=== PATIENT | female | born 1935 ===

== ENCOUNTER 2019-03-23 15:49 | Emergency (ER) | payer MEDICARE, BC ==
[~2019-03-23] VITALS: Ht 170.2 cm; Wt 72.6 kg
--- OUTSIDE RECORDS SUMMARY | 2019-03-23 16:02 | XMS REPORT | Summary of Care ---
Author Author [facility] - Health Organization [facility] - Health Address Unknown Phone Unavailable Care Team Providers Care Sports Leadership Instructor Name Role Phone Al Huerta MD PCP Reason for Visit * Reason Comments Refill Request Encounter Details Care Team Description Date Type Department Al Huerta MD [address] [place] [address] Refill Request 03/03/2019 Refill [facility], [address] [place] [address] Allergies Comments Active Allergy Reactions Severity Noted Date Sulfa (Sulfonamide Rash Medium 10/03/2018 Antibiotics) documented as of this encounter (statuses as of 03/06/2019) Medications End Date Status Medication Sig Dispensed Refills Start Date Active MULTIVITAMIN ORAL Take 1 tablet 0 by mouth daily. Active coenzyme Q10 (CO Q-10) Take 100 mg 0 100 mg softgel by mouth daily. Active vitamin B-12 (VITAMIN Take 1,000 0 B-12) 1,000 mcg tablet mcg by mouth daily. Active ARMOUR THYROID 60 mg TAKE 1 TABLET 30 tablet 0 tablet BY MOUTH 9 DAILY Active XARELTO 10 mg tablet TAKE 1 TABLET 30 tablet 0 BY MOUTH 9 DAILY documented as of this encounter (statuses as of 03/06/2019) Active Problems Problem Noted Date History of stroke without residual deficits 10/03/2018 Benign hypertensive heart disease without heart failure 10/03/2018 Mixed hyperlipidemia 10/03/2018 Atrophy of thyroid 10/03/2018 Controlled atrial fibrillation 10/03/2018 documented as of this encounter (statuses as of 03/06/2019) Social History Date Tobacco Use Types Packs/Day Years Used Never Smoker Smokeless Tobacco: Never Used Drinks/Week oz/Week Comments Alcohol Use Yes Sex Assigned at Date Recorded Not on file Industry Job Start Date Occupation Not on file Not on file Not on file Travel End Travel History Travel Start No recent travel history available. documented as of this encounter Last Filed Vital Signs Not on filedocumented in this encounter Plan of Treatment Health Maintenance Due Date Last Done Comments DTaP,Tdap,and Td Vaccines 1955 (1 - Tdap) Zoster Recombinant 1986 Vaccine (SHINGRIX) (1 of 2) Medicare Wellness Visit 2001 Osteoporosis Screening 2001 PNEUMOCOCCAL VACCINES 65+ 2001 (1 of 2 - PCV13) INFLUENZA VACCINE (#1) 2019 documented as of this encounter Results Not on filedocumented in this encounter Insurance Type Payer Benefit Subscriber ID Effective Phone Address Plan / Dates Group Medicare MEDICARE MEDICARE xxxxxxxxxxx 2001- [phone] 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
--- OUTSIDE RECORDS SUMMARY | 2019-03-23 16:02 | XMS REPORT | Summary of Care ---
Author Author [facility] - Health Organization [facility] - Health Address Unknown Phone Unavailable Care Team Providers Care Energy Project Manager Name Role Phone Al Huerta MD PCP Reason for Visit * Reason Comments Refill Request Encounter Details Care Team Description Date Type Department Al Huerta MD [address] [place] [address] Refill Request 03/11/2019 Refill [facility], [address] [place] [address] Allergies Comments Active Allergy Reactions Severity Noted Date Sulfa (Sulfonamide Rash Medium 10/03/2018 Antibiotics) documented as of this encounter (statuses as of 03/12/2019) Medications End Date Status Medication Sig Dispensed [...] 30 tablet 0 BY MOUTH 9 DAILY 03/11/2019 Discontinued XARELTO 10 mg tablet TAKE 1 TABLET 30 tablet 0 BY MOUTH 9 DAILY documented as of this encounter (statuses as of 03/12/2019) Active Problems Problem Noted Date History of stroke without residual deficits 10/03/2018 Benign hypertensive heart disease without heart failure 10/03/2018 Mixed hyperlipidemia 10/03/2018 Atrophy of thyroid 10/03/2018 Controlled atrial fibrillation 10/03/2018 documented as of this encounter (statuses as of 03/12/2019) Social History Date Tobacco Use Types Packs/Day [...] Dates Group Medicare MEDICARE MEDICARE xxxxxxxxxxx 2001- [phone] [address] Present [id number] FABIENNE HUTCHISON [id number] PPO/POS BCBS OF [facility] BCBS OF [id number] 2017-P EMPLOYEE [place] [employer] EMPLOYEE PLAN documented as of this encounter
--- OUTSIDE RECORDS SUMMARY | 2019-03-23 16:03 | XMS REPORT | Summary of Care ---
Author Author [facility] - Health Organization [facility] - Health Address Unknown Phone Unavailable Care Team Providers Care Die Finisher Name Role Phone Al Huerta MD PCP Reason for Visit * Reason Comments Refill Request Encounter Details Care Team Description Date Type Department Al Huerta MD [address] [place] [address] Refill Request 03/13/2019 Refill [facility], [address] [place] [address] Allergies Comments Active Allergy Reactions Severity Noted Date Sulfa (Sulfonamide Rash Medium 10/03/2018 Antibiotics) documented as of this encounter (statuses as of 03/14/2019) Medications End Date Status Medication Sig Dispensed [...] as of this encounter (statuses as of 03/14/2019) Active Problems Problem Noted Date History of stroke without residual deficits 10/03/2018 Benign hypertensive heart disease without heart failure 10/03/2018 Mixed hyperlipidemia 10/03/2018 Atrophy of thyroid 10/03/2018 Controlled atrial fibrillation 10/03/2018 documented as of this encounter (statuses as of 03/14/2019) Social History Date Tobacco Use Types Packs/Day [...] Dates Group Medicare MEDICARE MEDICARE xxxxxxxxxxx 2001- [phone] [address] B Present [id number] FABIENNE HUTCHISON [id number] PPO/POS BCBS OF [facility] BCBS OF [id number] 2017-P EMPLOYEE [employer] EMPLOYEE PLAN documented as of this encounter
--- OUTSIDE RECORDS SUMMARY | 2019-03-23 16:03 | XMS REPORT | Summary of Care ---
Author Author [facility] - Health Organization [facility] - [facility] Address Unknown Phone Unavailable Care Team Providers Care Fire Crew Specialist Name Role Phone Al Huerta MD PCP Reason for Visit * Reason Comments Refill Request Encounter Details Care Team Description Date Type Department Kevin Aponte MD [address] [place] [address] Refill Request 03/16/2019 Telephone [facility], [address] [address] Allergies Comments Active Allergy Reactions Severity Noted Date Sulfa (Sulfonamide Rash Medium 10/03/2018 Antibiotics) documented as of this encounter (statuses as of 03/16/2019) Medications End Date Status Medication Sig Dispensed Refills Start Date Active MULTIVITAMIN ORAL Take 1 tablet 0 by mouth daily. Active coenzyme Q10 (CO Q-10) Take 100 mg 0 100 mg softgel by mouth daily. Active vitamin B-12 (VITAMIN Take 1,000 0 B-12) 1,000 mcg tablet mcg by mouth daily. Active XARELTO 10 mg tablet TAKE 1 TABLET 30 tablet 0 BY MOUTH 9 DAILY Active thyroid (ARMOUR THYROID) Take 1 tablet 30 tablet 0 60 mg tablet by mouth 9 daily. 03/16/2019 Discontinued ARMOUR THYROID 60 mg TAKE 1 TABLET 30 tablet 0 tablet BY MOUTH 9 DAILY documented as of this encounter (statuses as of 03/16/2019) Active Problems Problem Noted Date History of stroke without residual deficits 10/03/2018 Benign hypertensive heart disease without heart failure 10/03/2018 Mixed hyperlipidemia 10/03/2018 Atrophy of thyroid 10/03/2018 Controlled atrial fibrillation 10/03/2018 documented as of this encounter (statuses as of 03/16/2019) Social History Date Tobacco Use Types Packs/Day [...] filedocumented in this encounter Plan of Treatment Care Team Description Date Type Specialty Kevin Aponte MD [address] [place] [id number] 03/29/2019 Office Visit Internal Medicine Health Maintenance Due Date Last Done Comments [...] Dates Group Medicare MEDICARE MEDICARE xxxxxxxxxxx 2001- [phone] [address] B Present [id number] FABIENNE HUTCHISON [phone] PPO/POS BCBS OF [facility] BCBS OF [id number] 2017-P EMPLOYEE [place] EMPLOYEE PLAN documented as of this encounter
--- OUTSIDE RECORDS SUMMARY | 2019-03-23 16:03 | XMS REPORT ---
Author Author [facility] Address Unknown Phone Unavailable Care Team Providers Care Research Executive Name Role Phone Unavailable Unavailable Problems This patient has no known problems. Allergies, Adverse Reactions, Alerts This patient has no known allergies or adverse reactions. Medications This patient has no known medications.
[2019-03-23] MEDS ORDERED: ONDANSETRON HCL INJ 2MG/ML 2ML 2 MG/ML VIAL IV ONE (16:30)
[2019-03-23] MEDS ORDERED: HYDROCODONE/APAP 5MG-325MG TAB PO ONE (16:30)
[2019-03-23] MEDS ORDERED: ONDANSETRON HCL 4 MG ORAL DISINTEGRATING TAB PO ONE (16:30)
[2019-03-23] MEDS ORDERED: KETOROLAC TROMETHAMINE 30 MG/ML VIAL IV ONE (16:30)
--- NOTE | 2019-03-23 16:59 | Diagnostic Imaging Report ---
EXAMINATION: PA and lateral views of the chest. COMPARISON: None CLINICAL HISTORY: The cough DISCUSSION: Lines/tubes: None. Lungs: The lungs are well inflated and clear. No pneumonia or pulmonary edema. Pleura: No pleural effusion or pneumothorax. Heart and mediastinum: The cardiomediastinal silhouette is normal. Bones and soft tissues: No acute bony abnormalities. IMPRESSION: No acute cardiopulmonary abnormalities. Signed by: Dr. Parish Treviño M.D. on 03/23/2019 4:56 PM
[2019-03-23] MEDS ORDERED: ONDANSETRON HCL INJ 2MG/ML 2ML 2 MG/ML VIAL ONE (17:04)
[2019-03-23] MEDS ORDERED: KETOROLAC TROMETHAMINE 30 MG/ML VIAL ONE (17:05)
[2019-03-23] MEDS ORDERED: HYDROCODONE/APAP 5MG-325MG TAB ONE (17:05)
[2019-03-23 17:35] VITALS: BP 173/81
== END 2019-03-23 17:47 | disposition home or self-care (01) ==
LOC: FSED 15:49
DX: R50.9 Fever, unspecified (principal); R05 Cough; J20.9 Acute bronchitis, unspecified; J04.0 Acute laryngitis; I10 Essential (primary) hypertension; I51.9 Heart disease, unspecified; Z86.73 Personal history of transient ischemic attack (TIA), and cerebral infarction without residual deficits; E03.9 Hypothyroidism, unspecified
CPT/HCPCS: 71046; 80053; 81003; 82553; 83518; 83880; 84484; 85025; 87400; 99284; J1885; J2405

== ENCOUNTER 2022-11-12 12:33 | Emergency (ER) | payer MEDICARE, BC ==
[~2022-11-12] VITALS: Ht 170.2 cm; Wt 64.6 kg
[2022-11-12] MEDS ORDERED: ARMOUR THYROID60 MG PO (13:02)
[2022-11-12] MEDS ORDERED: LOSARTAN POTASS25 MG PO (13:02)
[2022-11-12] MEDS ORDERED: XARELTO10 MG PO (13:02)
[2022-11-12] MEDS ORDERED: AUGMENTIN 500-1 EACH PO (14:40)
== END 2022-11-12 15:00 | disposition home or self-care (01) ==
LOC: FSED 12:37
DX: S02.2XXA Fracture of nasal bones, initial encounter for closed fracture (principal); W01.198A Fall on same level from slipping, tripping and stumbling with subsequent striking against other object, initial encounter; Y93.01 Activity, walking, marching and hiking; Y92.89 Other specified places as the place of occurrence of the external cause; I10 Essential (primary) hypertension; E03.9 Hypothyroidism, unspecified; I48.91 Unspecified atrial fibrillation; Z86.73 Personal history of transient ischemic attack (TIA), and cerebral infarction without residual deficits
CPT/HCPCS: 70450; 70486; 72125; 85610; 99284